=== PATIENT | female | born 1985 | race Two or more races ===

== ENCOUNTER 2016-12-21 13:16 | Emergency (ER) | payer MEDICAID ==
[2016-12-21 14:41] LABS: SPECIFIC GRAVITY 1.025 (1.001-1.030); URINE BILIRUBIN NEGATIVE (NEGATIVE); URINE BLOOD TRACE (NEGATIVE); URINE GLUCOSE (UA) NEGATIVE (NEGATIVE); URINE LEUKOCYTE ESTERASE NEGATIVE (NEGATIVE); URINE NITRITE NEGATIVE (NEGATIVE); URINE PROTEIN NEGATIVE (NEGATIVE); URINE UROBILINOGEN NORMAL (0-1 mg/dl)
[2016-12-21 14:43] LABS: HCG,QUALITATIVE URINE NEGATIVE; URINE APPEARANCE CLEAR; URINE COLOR YELLOW
--- NOTE | 2016-12-21 15:35 | US ---
Clinical indication: Pelvic pain. Technique: Transabdominal pelvic sonography was performed.To better visualize the endometrium and adnexa transvaginal sonography was performed. Comparison: None Findings: Uterus: The uterus is anteverted. The echotexture is heterogeneous. The uterus measures 10.6 x 5.1 x 6.8 centimeters. There are leiomyomas. Just to the right of midline there is a 2.3 x 2.4 x 2.4 cm myoma. Posteriorly there is a submucosal 1.0 x 0.9 x 0.5 cm leiomyoma. Nabothian cysts are present. Endometrial thickness: 15 millimeters. This is within normal range for age. No focal thickening or irregularity is identified. Adnexa: Right ovary: 4.3 x 1.7 x 4.0 centimeters. There is Doppler flow. Left ovary: 4.0 x 2.6 x 2.0 centimeters. There is Doppler flow. Cul-de-sac fluid: None IMPRESSION: 1. Leiomyomatous changes of the uterus. There is a submucosal 1 cm leiomyoma posteriorly in the uterine body. 2. Endometrial thickness at 15 mm. This is within normal limits for age. 3. No adnexal masses or free fluid is identified.
[2016-12-21 15:43] LABS: URINE RBC 0-1 /hpf
[2016-12-21 15:44] LABS: URINE BACTERIA RARE; URINE MUCUS 3+
[2016-12-21] MEDS ORDERED: MEDROXYPROGESTERONE ACET 2.5 MG TABLET PO ONE (16:15)
[2016-12-21] MEDS ORDERED: MEDROXYPROGESTERONE ACET 5 MG TABLET PO ONE (16:30)
== END 2016-12-21 16:55 | disposition home or self-care (01) ==
LOC: ED 13:16
DX: N92.1 Excessive and frequent menstruation with irregular cycle (principal)
CPT/HCPCS: 81025; 81001; 76856; 76830; 99283 ×2; A9270